=== PATIENT | female | born 1995 | race Caucasian/White ===

== ENCOUNTER 2019-03-30 13:21 | Emergency (ER) | payer BC ==
[~2019-03-30] VITALS: Ht 165.1 cm; Wt 62.6 kg
[2019-03-30] MEDS ORDERED: ENSKYCE1 EACH PO (13:46)
[2019-03-30 14:56] LABS: AMP/METHAMP Negative (Negative); BARBITURATES Negative (Negative); BENZODIAZEPINES Negative (Negative); COCAINE Negative (Negative); METHADONE Negative (Negative); OPIATES Negative (Negative); PCP Negative (Negative)
[2019-03-30 15:08] LABS: ABSOLUTE NEUTROPHILS 6.3 thou/uL (1.4-8.2); BASOPHILS 0.4 % (0.0-2.0); EOSINOPHILS 0.5 % (0.0-3.0); HEMATOCRIT 43.5 % (37.0-47.0); HEMOGLOBIN 14.8 gm/dL (12.0-15.0); LYMPHOCYTES 23.9 % (24.0-44.0); MCH 31.3 pg (26.0-34.0); MCV 91.9 fL (80.0-100.0); MONOCYTES 8.4 % (1.0-8.0); PLATELET COUNT 342 thou/uL (150-400); POLYS 66.8 % (36.0-66.0); RBC 4.73 mil/uL (4.20-5.00); RDW 12.3 % (10.5-14.5); WBC 9.4 thou/uL (4.0-11.0)
[2019-03-30 15:22] LABS: ANION GAP 10 mmol/L (7-16); BUN 12 mg/dL (7-18); CALCIUM 9.2 mg/dL (8.5-10.1); CHLORIDE 102 mmol/L (98-107); CO2 26 mmol/L (21-32); CREATININE 0.7 mg/dL (0.6-1.0); GLUCOSE 80 mg/dL (74-106); POTASSIUM 3.6 mmol/L (3.5-5.1); SODIUM 138 mmol/L (136-145)
[2019-03-30 15:25] LABS: APTT 27.8 Seconds (24.5-32.8); D-DIMER 0.19 ug/mLFEU (0.19-0.50)
[2019-03-30 15:32] LABS: ALBUMIN 3.9 g/dL (3.4-5.0); MAGNESIUM 2.1 mg/dL (1.8-2.4); SGOT 21 U/L (15-37); SGPT 21 U/L (30-65); TOTAL BILIRUBIN 0.2 mg/dL (<0.1-1.0); TOTAL PROTEIN 7.7 g/dL (6.4-8.2); TROPONIN-I <0.06 ng/mL (<0.06)
[2019-03-30] MEDS ORDERED: IBUPROFEN 600600 M1 PO (19:54)
[2019-03-30 20:16] VITALS: BP 139/98
--- NOTE | 2019-03-31 08:00 | EKG ---
[place] [address] 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 : 1995 Requested By: Faustino Ward Order Number: [id number] MD: Martin Gracia Measurements Intervals Kite Rate: 106 P: 48 CT: 229 QRS: 37 QRSD: 89 T: 39 QT: 316 QTc: 420 Interpretive Statements Sinus tachycardia Prolonged CT interval RSR' in V1 or V2, probably normal variant No previous ECG available for comparison Electronically Signed On 03-31-2019 8:00:20 HAND II TUBE BENDER by Martin Gracia [email or web address] <ELECTRONICALLY SIGNED> By: Martin Gracia MD, [facility] 03/31/19 0800 1341 1341 Martin Gracia MD, FACC /EPI
== END 2019-03-30 20:15 | disposition home or self-care (01) ==
LOC: ER 13:21
PROVIDERS: Emergency Medicine
DX: R07.89 Other chest pain (principal); E86.0 Dehydration; Q25.6 Stenosis of pulmonary artery

== ENCOUNTER → 2019-04-17 | Outpatient (CLI) | payer BC ==
[~2019-04-17] MED LIST: ENSKYCE1 EACH PO; IBUPROFEN 600600 M1 PO
--- NOTE | 2019-04-17 10:51 | EXE ---
[facility] [place] [address] STRESS ECHOCARDIOGRAM Name: PENELOPE WILSON Room #: REG SHAKEEL Toby#: [id number] Admission: 04/17/19 Attend Phys: Tony Lloyd Discharge: Date of : [birth year] Report #: [id number] THIS REPORT FOR: //name// APPROVED REPORT Study performed: 04/17/2019 09:10:45 Exam: Stress Echocardiogram Indication: Chest pain, pulmonic stenosis Patient Location: Out-Patient Stress Nurse: Neah Nassar RN Status: routine Ht: 5 ft 5 in HR: 91 bpm BP: 132/84 mmHg Rhythm: NSR Medical History Medications: None Allergies: No known drug allergies Cardiac Risk Factors: Recent high blood pressure Procedure The patient underwent an Exercise Stress Test using the Dannie Protocol. Blood pressure, heart rate, and EKG were monitored. An Echocardiogram was performed by all terrain vehicle technician in four stages in quad fashion. At peak stress, four selected images were obtained and placed side by side with resting images for comparison. Stress Test Details Stress Test: Exercise stress testing was performed using a Dannie protocol. HR Resting HR: 91 bpm Max Heart Rate (APMHR): 196 bpm Max HR Achieved: 193 bpm Target HR (85% APMHR): 166 bpm % of APMHR: 98 Recovery HR: 113 bpm HR response to stress: Normal HR response to stress BP Resting BP: 132/84 mmHg Max BP: 166/76 mmHg Recovery BP: 138/82 mmHg BP response to stress: Normal blood pressure response to stress. [facility] [address] [place] [address] STRESS ECHOCARDIOGRAM Name: TREY WILSONINE Room #: REG [facility]#: [id number] Admission: 04/17/19 Attend Phys: Tony Lloyd Discharge: Date of : [birth year] Report #: [id number] Resting ECG: Clear Stress ECG: Sinus Tachycardia Arrhythmia: None Recovery ECG: Sinus Rhythm Clinical Reason for Termination: Fatigue Stress Symptoms: None Exercise duration: 13 min 14 sec Highest Stage Achieved: Stage 5: 5.0 mph at 18% grade. Exercise capacity: 17.50 METs 1. Subjectively negative for ischemia 2. Echocardiographically negative for ischemia 3. Excellent functional capacity 4. No arrhythmias identified Pre-Stress Echo The resting Echocardiogram showed normal left ventricular contractility with an estimated Ejection Fraction of about 55-60%. The resting echocardiogram demonstrated normal wall motion in all wall segments. Patient has history of congenital pulmonic stenosis. Peak velocity through the valve is 2.7m/s with peak pressure gradient of 28mmHg and a mean of 19mmHg. Post-Stress Echo The stress Echocardiogram showed normal left ventricular contractility with an estimated Ejection Fraction of about >70%. Compared to rest, there were no stress-induced wall motion abnormalities. Conclusion Clinical Response: Non-ischemic Exercise Capacity: Superior Stress ECG Response: Non-ischemic Stress Echo Images: Non-ischemic 1. Low risk study for ischemic origin 2. Structurally normal heart significant without abnormalities 3. Excellent functional capacity 4. No inducible arrhythmias identified Other Information Study Quality: Good <Conclusion> 1. Low risk study for ischemic origin [facility] [address] [place] [address] STRESS ECHOCARDIOGRAM Name: PENELOPE WILSON Room #: REG Toby#: [id number] Admission: 04/17/19 Attend Phys: Tony Lloyd Discharge: Date of : [birth year] Report #: [id number] 2. Structurally normal heart significant without abnormalities 3. Excellent functional capacity 4. No inducible arrhythmias identified <ELECTRONICALLY SIGNED> By: Tony Knapp MD 04/17/19 1050 105 Tony Knapp MD /INF
== END ==
LOC: CV 08:51
DX: R07.9 Chest pain, unspecified (principal); R00.0 Tachycardia, unspecified